=== PATIENT | female | born 1970 | race Caucasian/White ===

== ENCOUNTER 2018-09-03 16:11 | Emergency (ER) | payer OTHER ==
[~2018-09-03] VITALS: Ht 160 cm; Wt 69.4 kg
[2018-09-03 16:11] VITALS: BP_SYST 151
--- NOTE | 2018-09-03 16:11 | NUR ---
BROUGHT BACK TO BED #4 AND TRIAGED. REPORT GIVEN TO JOSH
--- NOTE | 2018-09-03 16:15 | NUR ---
Patient brought in by family complaining of worsening cold symptoms and non productive cough since yesterday with yellow sputum. Patient reports using Mucinex with minimal relief. Denies any pain. Patient is tachy at 133 and temperature of 100.3 at arrival. No other complaints/injuries per patient or as noted. Will continue to monitor.
[2018-09-03] MEDS ORDERED: ACETAMINOPHEN 500 MG TABLET ONE (16:33)
--- NOTE | 2018-09-03 16:35 | NUR ---
ER Dr. Sargent at bedside examining patient.
[2018-09-03] MEDS ORDERED: ACETAMINOPHEN 500 MG TABLET PO ONE (17:00)
--- NOTE | 2018-09-03 17:17 | NUR ---
Patient off unit to radiology for Chest xray
--- NOTE | 2018-09-03 17:49 | NUR ---
Patient given written and verbal discharge instructions and verbalizes understanding. ER MD discussed with patient the results and treatment provided. Patient in stable condition. ID arm band removed. Rx of Amoxicillin, Albuterol, promethazine VC given. Patient educated on pain management and to follow up with PMD. Pain Scale 0/10. Opportunity for questions provided and answered. Medication side effect fact sheet provided.
[2018-09-03 17:51] VITALS: BP_SYST 114
== END 2018-09-03 17:51 | disposition home or self-care (01) ==
LOC: SED 16:11
DX: J40 Bronchitis, not specified as acute or chronic (principal); I10 Essential (primary) hypertension; E78.00 Pure hypercholesterolemia, unspecified; Z85.3 Personal history of malignant neoplasm of breast
CPT/HCPCS: 71046-TC; 81025; 99283

== ENCOUNTER 2018-10-11 19:20 | Emergency (ER) | payer OTHER ==
[2018-10-11] MEDS ORDERED: DIPH-TET-PERTUS Vaccine 0.5 ML VIAL (ADACEL) I.M. ONE (20:27)
[2018-10-11] MEDS ORDERED: CEPHALEXIN 500 MG CAPSULE ONE (20:28)
[2018-10-11] MEDS ORDERED: IBUPROFEN 600 MG TABLET ONE (20:28)
== END 2018-10-11 20:59 | disposition home or self-care (01) ==
LOC: SED 19:20
DX: S61.211A Laceration without foreign body of left index finger without damage to nail, initial encounter (principal); I10 Essential (primary) hypertension; Z85.3 Personal history of malignant neoplasm of breast; W26.0XXA Contact with knife, initial encounter; Y93.89 Activity, other specified; Y92.89 Other specified places as the place of occurrence of the external cause; Y99.8 Other external cause status
CPT/HCPCS: 73140-TC; 90715; 99283

== ENCOUNTER 2019-01-28 13:36 | Emergency (ER) | payer OTHER ==
[~2019-01-28] VITALS: Ht 160 cm; Wt 68.9 kg
[2019-01-28 13:45] VITALS: BP_SYST 145
[2019-01-28 14:30] VITALS: BP_SYST 145
== END 2019-01-28 14:30 | disposition home or self-care (01) ==
LOC: SED 13:36
DX: B30.9 Viral conjunctivitis, unspecified (principal); E78.00 Pure hypercholesterolemia, unspecified; I10 Essential (primary) hypertension
CPT/HCPCS: 99283